=== PATIENT | female | born 1995 | race Caucasian/White ===

== ENCOUNTER 2016-11-04 02:23 | Emergency (ER) | payer OTHER ==
[~2016-11-04] VITALS: Ht 162.6 cm; Wt 80.0 kg
[~2016-11-04 02:23] MED LIST: ABILIFY PO; AMOXICILLI250 MG/5 M PO; DICLOFENAC PO; FLEXERIL10 MG PO; LORTAB 10-5001 EACH PO; LORTAB ELIXIR480 ML PO; MACROBID100 MG PO; MEDROL DOSEPAK4 MG PO; MOTRIN100 MG/5 M PO; MOTRIN600 MG PO; NO MEDICATIONS; PERIDEX480 ML PO; TENEX1 MG PO; VICODIN 5/1 TAB 5/50 PO; VICODIN ES 7.51 EACH PO
[2016-11-04 03:27] LABS: BASOPHIL% 0.3 % (0-2.5); EOSINOPHIL# 0.2 X10e3 (0-0.7); EOSINOPHIL% 1.2 % (0.0-7.0); HEMATOCRIT 31.2 % (35.0-45.0); HEMOGLOBIN 10.9 gm/dL (12.0-16.0); LYMPHOCYTE# 1.9 X10e3 (1.0-3.5); LYMPHOCYTE% 13.5 % (17.0-45.0); MEAN CELL VOLUME 84.9 FL (83-96); MEAN CORPUSCULAR HEMOGLOBIN 29.6 PG (28-34); MEAN CORPUSCULAR HGB CONC 34.9 g/dL (30-36); MEAN PLATELET VOLUME 7.9 FL (6.5-11.5); MONOCYTE# 0.8 X10e3 (0-1.0); MONOCYTE% 5.6 % (3.0-12.0); NEUTROPHIL# 11.1 X10e3 (1.5-7.1); NEUTROPHIL% 79.4 % (40-75); PLATELET COUNT 248 X10e3 (140-420); RED BLOOD COUNT 3.68 X10e (3.90-5.30)
[2016-11-04 03:28] LABS: DIFF IND NO
[2016-11-04 03:36] LABS: URINE SOURCE CLEAN CATCH
[2016-11-04 03:40] LABS: URINE APPEARANCE CLEAR; URINE BILIRUBIN NEG (NEG); URINE BLOOD NEG (NEG); URINE COLOR YELLOW; URINE GLUCOSE NEG (NEG); URINE KETONE NEG (NEG); URINE LEUKOCYTE ESTERASE TRACE (NEG); URINE NITRATE NEG (NEG); URINE PH 8.5 (5-8); URINE PROTEIN NEG (NEG); URINE SPECIFIC GRAVITY 1.014 (1.003-1.035); URINE UROBILINOGEN 0.2 MG/DL (NEG)
[2016-11-04 03:43] LABS: CULTURE INDICATED? YES; URBCS1 AUWI 0-2 /[HPF] (0-2); URINE BACTERIA AUWI 1+ (NEGATIVE); URINE SQUAMOUS EPITHELIAL CELL FEW /[HPF]
[2016-11-04 03:50] LABS: CALCIUM SERUM 9.3 mg/dL (8.4-10.2); CREATININE SERUM 0.5 mg/dL (0.6-1.4); GLOM FILT RATE Estimated 139.3 mL/min (>60); POTASSIUM 3.2 mmol/L (3.5-5.1)
== END 2016-11-04 06:30 | disposition home or self-care (01) ==
LOC: CED 02:23
PROVIDERS: Emergency Medicine
DX: O23.42 Unspecified infection of urinary tract in pregnancy, second trimester (principal); Z3A.19 19 weeks gestation of pregnancy
CPT/HCPCS: 80048; 81003; 84703; 85025; 87086; 96360; 96361; 99284